=== PATIENT | male | born 1990 | race Caucasian/White ===

== ENCOUNTER 2022-02-23 11:18 | Emergency (ER) | payer SELFPAY ==
[2022-02-23] MEDS ORDERED: Acetaminophen/oxyCODONE 325-10 MG Tab PO ONE (11:36)
[2022-02-23] MEDS ORDERED: Ketorolac 60 MG/2 ML SDV IM ONE (11:36)
== END 2022-02-23 13:20 | disposition home or self-care (01) ==
LOC: MW.ED 11:18
DX: S69.91XA Unspecified injury of right wrist, hand and finger(s), initial encounter (principal); W23.1XXA Caught, crushed, jammed, or pinched between stationary objects, initial encounter; Y92.69 Other specified industrial and construction area as the place of occurrence of the external cause
CPT/HCPCS: 73130; 96372; 99283; A9270; J1885